=== PATIENT | female | born 1995 | race African-American/Black ===

== ENCOUNTER 2024-10-08 10:22 | Emergency (ER) | payer MEDICAID ==
[~2024-10-08] VITALS: Ht 157.5 cm; Wt 53.0 kg
[2024-10-08 10:25] VITALS: O2SAT 100
[2024-10-08 10:33] VITALS: BP 145/89; PULSE 87; RESP 14; TEMP 36.7; O2SAT 98
[2024-10-08 12:25] LABS: HCG SCREEN POSITIVE
== END 2024-10-08 11:41 | disposition home or self-care (01) ==
LOC: ER 10:22
DX: Z32.01 Encounter for pregnancy test, result positive (principal); J45.909 Unspecified asthma, uncomplicated; I10 Essential (primary) hypertension; Z79.899 Other long term (current) drug therapy
CPT/HCPCS: 36415; 81025; 84702; 84703; 99283